=== PATIENT | female | born 1990 | race Caucasian/White ===

== ENCOUNTER → 2018-04-19 | Outpatient (CLI) | payer OTHER ==
--- NOTE | 2018-04-19 08:09 | WOMENS IMAGING REPORT ---
EXAM DESCRIPTION: TRANSVAGINAL ULTRASOUND COMPLETED DATE/TIME: 04/19/2018 7:33 am REASON FOR STUDY: N92.6 IRREGULAR MENSTRUAL BLEEDING N92.6 IRREGULAR MENSTRUATION, UNSPECIFIED COMPARISON: None. TECHNIQUE: Dynamic and static grayscale images acquired of the pelvis via transvaginal approach and recorded on PACS. Additional selected color Doppler and spectral images recorded. LIMITATIONS: None. FINDINGS: UTERUS: Contour normal. No mass. ENDOMETRIAL STRIPE: No focal or generalized thickening. No masses. CERVIX: No nabothian cysts. RIGHT OVARY AND DOPPLER: Normal size. Several small subcentimeter follicles. Normal arterial vascula r flow without evidence for torsion. LEFT OVARY AND DOPPLER: Not visualized sonographically due to overlying bowel gas. FREE FLUID: Small amount of free fluid may be on a physiologic basis. OTHER: No other significant finding. MEASUREMENTS: UTERUS: 8.1 x 3.7 x 4.8 cm ENDOMETRIAL STRIPE: 12 mm RIGHT OVARY: 5.2 x 2.4 x 3.3 cm LEFT OVARY: Not visualized. IMPRESSION: 1. The left ovary is not visualized sonographically due to overlying bowel gas. 2. Small amount of free fluid may be on a physiologic basis. 3. Examination is otherwise unremarkable sonographically. TECHNICAL DOCUMENTATION: JOB ID: [id number]- All Rights Reserved Rev-09/29 Reading location - IP/workstation name: [email or web address]
== END ==
LOC: WI 06:53
PROVIDERS: ATTEND Nurse Practitioner Family
DX: N92.6 Irregular menstruation, unspecified (principal)
CPT/HCPCS: 76830